=== PATIENT | female | born 1985 | race Caucasian/White ===

== ENCOUNTER 2019-06-11 16:49 | Outpatient (AMB) | payer MEDICAID, SELFPAY ==
[2019-06-11 16:53] VITALS: BP 141/89; PULSE 88; RESP 18; TEMP 36.8; O2SAT 98; BMI 30.5
--- NOTE | 2019-06-11 16:53 | UCVISIT ---
Intake Ht./Wt. Decline/Exclusions Patient Declined Height and Weight this visit: No PT Meets exclusion criteria: No Vital Signs 06/11/19 16:53 Height 5 ft 4 in Height Method Measured Weight 80.739 kg Weight Measurement Method Standing Scale BMI 30.5 Temp 98.2 F Temp Source Temporal Artery Scan Pulse 88 Pulse Source Monitor Respiration 18 BP 141/89 H Blood Pressure Source Automatic Cuff Blood Pressure Location Right Upper Arm Position Sitting Pulse Oximetry (%) 98 Oxygen Delivery Method Room Air Intake [place] Travel (last 14 days): No [facility] Travel (last 14 days): No Been in Contact w/Anyone Being Evaluated for Coronavirus (last 14 days): No Been in Close Contact w/Anyone Dx w/Coronavirus: No Zika Travel: No Been in contact w/anyone who has been Dx w/Zika Virus: No Been in contact w/anyone sick during travel outside country: No Patient >or equal to 18 years BMI outside of range 18.5-24.9: Yes Visit Reasons: UC Shoulder injury/pain Primary Care Provider: Ernie Gibbons Is patient in pain?: Yes Pain Location:: left shoulder Galindo-Bhatia/Numerical: 8 Pain Scale Used: Numeric (1 - 10) Triage Triage Allergy / Med Rec Allergies prochlorperazine Allergy (Mild, Verified 06/11/19 17:01) Seizure promethazine Allergy (Mild, Verified 06/11/19 17:01) Swelling Anesthetics - Amide Type Allergy (Unknown, Verified 06/11/19 17:01) Anesthetics - Jolene Type- Parabens Allergy (Unknown, Verified 06/11/19 17:01) Band Placement: Patient Identification DELIA: [id number] Arrival Mode of Arrival: Private Vehicle Method of Arrival: Ambulatory Accompanied By: Self PCP or OBGYN visit in last 3 months: No Language Preferred Language: Icelandic Straddle Buggy Operator Required: No Female History Now: No Last Menstrual Period: 05/17/19 : No Social History Alcohol / Drugs Hx Alcohol Use: No Hx Substance Use: No Safety Do You Feel Safe at Home: Yes Authorities Contacted: N/A Justice Fall Scale Special Populations Patient Comatose, Paralyzed or Immobile: No Patient Under the Age of 44 Years Old: No Assessment History of falling; immediate or within 3 months: No Secondary diagnosis: No Ambulatory aid: None IV Infusion: No Gait/Transferring: Normal/bedrest/immobile Mental Status: Oriented to own ability Score Score: 0 Risk Level/Action Risk Level: Low Risk Action: Good Basic Nursing Care Fall Star Level 1 Fall Star Level 1: Yes Patient Education Topic Education Topics: Discharge Instructions and Plan of Care Teaching Recipient: Patient Readiness, Motivation to Learn: Active Methods: Verbal instruction and Hand Out Educ Materials Suggested by INFO Button/Rx Monograph Given: No Response: Verbalize Understanding Straddle Buggy Operator Required: No [facility] Hx Congestive Heart Failure: No Hx Diabetes Mellitus Type 1: No Hx Diabetes Mellitus Type 2: No Hx Renal Disease: No Hx Chronic Obstructive Pulmonary Disease (COPD): No Past Medical History Reviewed and agree with Nursing documentation.: Yes Past Medical History History Provided By: Patient Past Medical History: Yes Family Medical History Systems Hx Family Cardiac Disorders: Yes (FATHER (HTN)) Hx Family Gastrointestinal Problems: No Hx Family Psychiatric Problems: Yes (FATHER (ANXIETY)) Hx Family Respiratory Disorders: No Family Medical History Other Hx Family Allergies: Yes (BROTHER) Hx Family Anesthesia Reaction: No Hx Family Autoimmune Disease: No Hx Family Cancer: Yes (FATHER (SKIN)) Hx Family Surgery: Yes (FATHER,SISTER) Cardiac Medical History Hx Cardiac Disorders: Yes (BEING SEEN CURRENTLY BY PLASTIC PROCESS TECHNICIAN DUE TO C/O CHEST PAIN) Hx Aneurysm: No Hx Angina: Yes Hx Atherosclerotic Heart Disease: No Hx Atrial Fibrillation: No Hx Cardiac Arrhythmia: No Hx Cardiomyopathy: No Hx Cellulitis: No Hx Congenital Heart Disease: No Hx Congestive Heart Failure: No Hx Coronary Artery Disease: No Hx Deep Vein Thrombosis: No Hx Edema: No Hx Endocarditis: No Hx Heart Murmur: No Hx High Cholesterol: No Hx Hypertension: No Hx Hypotension: No Hx Myocardial Infarction: No Hx Pacemaker: No Hx Pericarditis: No Hx Peripheral Vascular Disease: No Hx Rheumatic Fever: No Hx Varicose Veins: No Hx Valvular Heart Disease: No Endocrine Medical History Hx Endocrine Disorders: No Hx Sardinia's Disease: No Hx Adrenal Disease: No Hx Moore's Syndrome: No Hx Diabetes Mellitus Type 1: No Hx Diabetes Mellitus Type 2: No Hx Graves' Disease: No Hx Hyperthyroidism: No Hx Hypoglycemia: No Hx Hypothyroidism: No Hx Parathyroid Disease: No Hx Pituitary Disease: No Hx SIADH: No Hx Systemic Lupus Erythematosus: No ENT Medical History Hx Blind: No Hx Cataracts: No Hx Chronic Ear Infections: No Hx Deafness: No Hx Eye Prosthesis: No Hx Glaucoma: No Hx Macular Degeneration: No Hx Retinal Detachment: No Gastrointestinal Medical History Hx Gastrointestinal Disorders: No Hx Gramajo's Esophagus: No Hx Celiac Disease: No Hx Cirrhosis: No Hx Colitis: No Hx Crohn's Disease: No Hx Diverticulitis: No Hx Diverticulosis: No Hx Esophageal Varices: No Hx GERD: No Hx Hemorrhoids: No Hx Hiatal Hernia: No Hx Irritable Bowel: No Hx Obesity: No Hx Obstructive Bowel: No Hx Pancreatitis: No Hx Ulcer: No Hx Ulcerative Colitis: No Genitourinary Medical History Hx Genitourinary Disorders: Yes Hx BPH: No Hx Dialysis: No Hx Inguinal Hernia: No Hx Kidney Stones: Yes (HAD PROCEDURE) Hx Neurogenic Bladder: No Hx Polycystic Kidney Disease: No Hx Renal Disease: No Hematologic Medical History Hx Blood Disorders: No Hx Anemia: No Hx Hemophilia: No Hx Leukemia: No Hx Sickle Cell Disease: No Hx Thalassemia: No Musculoskeletal History Hx Musculoskeletal Disorders: Yes Hx Arthritis: No Hx Back Pain: Yes Hx Degenerative Disk Disease: No Hx Degenerative Joint Disease: No Hx Fibromyalgia: Yes Hx Fractures: No Hx Gout: No Hx Muscular Dystrophy: No Hx Myasthenia Gravis: No Hx Marfan's Syndrome: No Hx Osteomyelitis: No Hx Osteoporosis: No Hx Poliovirus: No Hx Rheumatoid Arthritis: No Hx Scoliosis: No Neurologic Medical History Hx Neurological Disorders: No Hx ALS/Alyson Gehrig's Disease: No Hx Alzheimer's Disease: No Hx Toth's Palsy: No Hx Brain Tumor: No Hx Cerebral Palsy: No HX Cerebrovascular Accident: No Hx Dementia: No Hx Epilepsy: No Hx Guillain-[place] Syndrome: No Hx Head Trauma: No Hx Meningitis: No Hx Migraine: No Hx Multiple Sclerosis: No Hx Paralysis: No Hx Parkinson's Disease: No Hx Peripheral Neuropathy: No Hx Seizures: Yes (DUE TO COMPAZINE) Hx Spina Bifida: No Hx Spinal Cord Injury: No Hx Subdural Hematoma: No Hx Transient Ischemic Attacks (TIA): No Hx Traumatic Brain Injury: No Psycho/Social Medical History Hx Psychosocial Disorder: Yes Hx Anxiety: Yes Hx Attention Deficit Disorder: No Hx Attention Deficit Hyperactivity Disorder: No Hx Autism: No Hx Behavior Problems: No Hx Bipolar Disorder: No Hx Depression: Yes Hx Eating Disorder: No Hx Depression: No Hx Post Traumatic Stress Disorder: No Hx Psychiatric Problems: No Hx Recreational Drug Use: No Hx Schizophrenia: No Hx Self-Mutilation: No Reproductive Medical History Hx Reproductive Disorders: No Hx Control: Yes (LEFT ARM) Hx Genital Herpes: No Hx Gonorrhea: No Hx Syphilis: No Reproductive Female History Hx Endometriosis: No Hx Pelvic Inflammatory Disease: No Hx Previous Pregnancies: Yes (X2) Hx Uterine Prolapse: No Respiratory Medical History Hx Airway Support: No Hx Asthma: No Hx Bronchitis: No Hx COPD: No Hx Cystic Fibrosis: No Hx Emphysema: No Hx Pneumonia: No Hx Pulmonary Edema: No Hx Pulmonary Embolism: No Hx Pulmonary Fibrosis: No Hx Sleep Apnea: No Hx Tuberculosis: No General Surgical History Hx Surgery: Yes (,stent) Cardiac Surgical History Hx Cardiac Surgery: No Hx AICD: No Hx Angiogram: No Hx CABG: No Hx Carotid Endarterectomy: No Hx Catheterization: No Hx Coronary Stent: No Hx Open Heart Surgery: No Hx Valve Replacement: No Hx Vascular Surgery: No Endocrine Surgical History Hx Endocrine Surgery: No Hx Thyroidectomy: No ENT Surgical History Hx Adenoidectomy: No Hx Cochlear Implant: No Hx Corneal Transplant: No Hx Ear Surgery: No Hx Eye Surgery: No Hx Nose Surgery: No Hx Oral Surgery: No Hx Throat Surgery: No Hx Tonsillectomy: No Hx Tracheostomy: No Hx Tympanostomy Tube: No GI Surgical History Hx Abdominal Surgery: Yes Hx Bowel Surgery: No Hx Gastric Bypass Surgery: No Hx Gastrostomy: No Surgical History Hx Nephrectomy: No Hx Transurethral Resection: No Musculoskeletal Surgical History Hx Arthroscopy: No Hx Amputation: No Hx Carpal Tunnel Syndrome: No Hx Joint Replacement: No Hx Open Reduction Internal Fixation: No Neuro Surgical History Hx Neurologic Surgery: No Hx Brain Shunt: No Female Reproductive Surgical History Hx Section: Yes (X2) Hx Lumpectomy: No Hx Mastectomy: No Hx Tubal Ligation: No Other Surgical History Hx Organ Transplant: No Other Medical History ([facility]) Hx Developmental Delay: No Hx Down Syndrome: No Hx Falls: Yes (FALLS A LOT) Hx Hospitalization: No [facility] -Treatments & Interventions Hx Anesthesia Reactions: Yes (PER PT, STOPED BREATHING AND HAD CPR) Hx Blood Transfusions: No Hx Chemotherapy: No Hx Hyperbaric Therapy: No Hx Radiation Therapy: No [facility] - Drug Resistant Organism Hx MRSA: No [facility] - Communicable Disease Hx Chicken Pox: Yes Hx Hepatitis: No Hx HIV: No Hx HPV: No Hx Measles: No Hx Mumps: No Hx Pertussis: No Hx Rubella: No [facility] - Cancer Hx Bone Cancer: No Hx Breast Cancer: No Hx Cervical Cancer: No Hx Colorectal Cancer: No Hx Lung Cancer: No Hx Ovarian Cancer: No Hx Prostate Cancer: No Hx Skin Cancer: No Hx Uterine Cancer: No HPI Shoulder/Arm Injury/Condition Current symptoms: Reports stiffness HPI Comments Details: 34-year-old female presents with left shoulder pain x2 days, per patient she has a history of frequent falls due to her legs going numb on her, she thinks when she might have fallen the last 2 days that she may have injured her left shoulder. Her pain is aggravated with left shoulder movement she denies any numbness and tingling to distal extremity but states that she feels some burning sensation to her left forearm. Patient states that she has been taking ibuprofen 800 mg with minimal relief. Review of Systems (UC) Review of Systems All systems reviewed & no additional complaints except as documented Const Constitutional: Reports frequent falls Card Cardiovascular: Reports system reviewed and no additional complaints, except as documented Resp Respiratory: Reports system reviewed and no additional complaints, except as documented Musc Musculoskeletal: Reports joint pain, Denies joint swelling, Reports limited joint movement, Denies muscle weakness, Denies numbness, Denies radiating pain into limb, Reports stiffness and Denies tingling Neuro Neurologic: Reports frequent falls, Denies numbness and Denies tingling Exam (UC) Limitations: no limitations General Appearance: alert, in no apparent distress, comfortable, cooperative, healthy appearing, well developed and well groomed SPO2%: 98% SPO2 type: Room Air SPO2% Normal/Abnormal: Normal Respiratory exam: Present normal lung sounds bilaterally Cardiovascular exam: Present regular rate and regular rhythm Extremities exam: tenderness and joint swelling Left Shoulder: UE exam: Present pain w/pronation/supination and tenderness over AC joint; Absent full ROM, deformity and erythema Office Procedures UC Level of Care Nursing/Assessment/Reassessment Patient Status: Established Patient Nursing Assessment/Reassessment: Triage Asessment, Initial Vital Signs and RN General Assessments Coordination of Care: DC Instructions Simple 1-2 sets and Lab/Imaging Orders Established Patient Charge Established Patient Point Assignment: 55 Established Patient Point Assignment: EP Level 2 (40-75) Procedures: Pulse Ox reading: Yes Assessment and Plan Assessment & Plan (1) Shoulder injury: Plan - Milo Moran PA-C: Take medication as prescribed follow-up with your regular doctor in 3 to 5 days (2) Muscle strain of left shoulder region: Plan - Milo Moran PA-C: Take medication as prescribed follow-up with your regular doctor in 3 to 5 days Plan Details Other Medications: New: lidocaine 4% may leave on for up to 12 hrs 1 patch topical QDAY 5 days PRN 5 ea 0RF pain Other Orders: Orders: XR shoulder LT min 2V Today Primary Care Provider: Ernie Gibbons Instructions: Understanding AC Joint Sprain ED Sprain AC Joint ED Sprain Shoulder Additional Information PA/SENIOR SOFTWARE TESTER Supervising Physician: Vitaliy Quick DC Evaluation Discharge Information Seen, Treated and Released by Provider: No Left Prior to Receiving Discharge Instructions: No Transfer to Outside Facility: No Vital Signs Vitals Signs N/A: Yes Pain Pain Medication / Other Intervention Provided: No Medication Medication Given this Visit: No Discharge Information Condition on Discharge: Stable Mode of Discharge: Ambulatory Discharge Transportation: Private Vehicle Instructions Straddle Buggy Operator Required: No Discharge Instructions Given To: Patient Was Follow up Care Ordered: Yes Verbalizes Understanding of Discharge Instructions: Yes [facility] information card provided?: Yes Patient plan follow up w/PCP for [facility]: No
--- NOTE | 2019-06-11 17:28 | XR_ITS ---
Shoulder,left, 3 views Technique: Shoulder AP internal rotation, AP external rotation, Y view shoulder, 3 views Exam date and time :June 11, 2019 1749 hrs. Indications: Onset left shoulder pain today no trauma Findings: No fracture or shoulder dislocation No AC joint separation. No arthritic change. No calcific tendinitis Impression: No fracture or significant arthritic change
== END 2019-06-11 18:29 | disposition home or self-care (01) ==
PROVIDERS: PCP Physician Assistant; Referring Provider Physician Assistant; Visit Provider Physician Assistant